=== PATIENT | female | born 1995 | race Two or more races ===

== ENCOUNTER 2023-03-22 16:45 | Inpatient (IN) | payer OTHER ==
[2023-03-22] MEDS ORDERED: Terbutaline 1 MG/ML SDV SUBCUT PRN (16:57)
[2023-03-22] MEDS ORDERED: Oxytocin/0.9 % Sodium Chloride 30 UNIT/500 ML BAG IV SCH ×2 (17:00→18:30)
[2023-03-22] MEDS: Lactated Ringers 1,000 ML IV SCH ×2 (17:30→21:49)
[2023-03-22] MEDS ORDERED: Methylergonovine 0.2 MG/1 ML Amp IM PRN (18:20)
[2023-03-22] MEDS ORDERED: Sodium Chloride 0.9% 20 ML SDV IV PRN (18:20)
[2023-03-22] MEDS ORDERED: Water For Irrigation,Sterile 1,000 ML Container IRR PRN (18:20)
[2023-03-22] MEDS ORDERED: Tranexamic Acid IN NACL,ISO-OS 1,000 MG in Premix Bag 1 BAG IV PRN ×2 (18:20)
[2023-03-22] MEDS ORDERED: Sodium Chloride 0.9% 10 ML Syringe FLUSH PRN (18:20)
[2023-03-22] MEDS ORDERED: Carboprost Tromethamine 250 MCG/1 mL Vial IM PRN (18:20)
[2023-03-22] MEDS ORDERED: Lidocaine 1% 50 ML MDV INJECT PRN (18:20)
[2023-03-22] MEDS ORDERED: Ondansetron 4 MG/2 ML SDV IVPUSH PRN (18:20)
[2023-03-22] MEDS ORDERED: Sodium Chloride 0.9% 2.5 ML Syringe FLUSH PRN (18:20)
[2023-03-22] MEDS ORDERED: Misoprostol 200 MCG Tab PO PRN (18:20)
[2023-03-22] MEDS ORDERED: Nalbuphine 10 MG/0.5 ML Syringe IVPUSH PRN (18:24)
[2023-03-22 18:41] LABS: HEMATOCRIT 36.3 % (36.0-46.0); HEMOGLOBIN 11.7 g/dL (12.0-16.0); MEAN CORPUSCULAR HEMOGLOBIN 26.4 pg (27.0-32.0); MEAN CORPUSCULAR HGB CONC 32.2 g/dL (31.0-37.0); MEAN CORPUSCULAR VOLUME 81.8 fL (80.0-98.0); MEAN PLATELET VOLUME 11.4 fL (7.40-12.00); RED BLOOD CELL COUNT 4.44 M/uL (4.30-5.90); WHITE BLOOD CELL COUNT,WBC 6.55 K/uL (4.0-11.0)
[2023-03-22] MEDS ORDERED: ePHEDrine 50 MG/ML SDV IVPUSH PRN ×2 (21:21)
[2023-03-22] MEDS ORDERED: Ropivacaine HCl/PF 400 MG in Premix Bag 1 BAG EPIDUR SCH (21:30)
[2023-03-22] MEDS ORDERED: Dexmedetomidine 200 MCG/2 ML SDV ONE (22:26)
[2023-03-23] MEDS: Lactated Ringers 1,000 ML IV SCH ×4 (00:57→16:37)
[2023-03-23] MEDS: Phenylephrine HCl 0.5 MG/5 ML AMP IVPUSH PRN ×7 (01:34→02:50)
[2023-03-24] MEDS ORDERED: Bisacodyl 10 MG Supp RECTAL PRN (00:05)
[2023-03-24] MEDS ORDERED: oxyCODONE 5 MG Tab PO PRN (00:05)
[2023-03-24] MEDS ORDERED: Ibuprofen 400 MG Tab PO PRN (00:05)
[2023-03-24] MEDS ORDERED: Lanolin 100% Cream 7 GM Tube TOP PRN (00:05)
[2023-03-24] MEDS ORDERED: Acetaminophen 500 MG Tab PO PRN (00:05)
[2023-03-24 00:14] LABS: PH,UMBILICAL ARTERIAL 7.169 (7.18-7.38); PH,UMBILICAL VENOUS 7.296 (7.25-7.45)
[2023-03-24] MEDS: Ibuprofen 800 MG Tab PO PRN ×3 (00:51→17:00)
[2023-03-24] MEDS: Acetaminophen 500 MG Tab PO PRN ×3 (00:53→21:26)
[2023-03-24] MEDS: Witch Hazel Medicated Pads 40/Jar TOP PRN ×2 (00:54→09:49)
[2023-03-24] MEDS: Benzocaine/Menthol 20%-0.5% Spray 78 GM Cannister TOP PRN (00:54)
[2023-03-24] MEDS: Docusate Sodium 100 MG Cap PO SCH ×2 (09:51→21:25)
[2023-03-24 15:17] LABS: HEMATOCRIT 26.8 % (36.0-46.0); HEMOGLOBIN 8.9 g/dL (12.0-16.0)
[2023-03-25] MEDS: Benzocaine/Menthol 20%-0.5% Spray 78 GM Cannister TOP PRN (04:13)
[2023-03-25] MEDS: Ibuprofen 800 MG Tab PO PRN (04:13)
[2023-03-25] MEDS: Witch Hazel Medicated Pads 40/Jar TOP PRN (04:13)
== END 2023-03-25 20:30 | disposition home or self-care (01) | DRG 768 ==
LOC: MW.OB 16:45 → OBSVTOIN 03-23 23:10 → MW.OB 03-24 04:12
PROVIDERS: ADMIT Obstetrics & Gynecology; ATTEND Obstetrics & Gynecology
PROC: 10E0XZZ Delivery of Products of Conception, External Approach (ICD-10-PCS; principal; 2023-03-23)
PROC: 0DQR0ZZ Repair Anal Sphincter, Open Approach (ICD-10-PCS; 2023-03-23)
PROC: 3E033VJ Introduction of Other Hormone into Peripheral Vein, Percutaneous Approach (ICD-10-PCS; 2023-03-23)
PROC: 3E0R3BZ Introduction of Anesthetic Agent into Spinal Canal, Percutaneous Approach (ICD-10-PCS; 2023-03-23)
PROC: 00HU33Z Insertion of Infusion Device into Spinal Canal, Percutaneous Approach (ICD-10-PCS; 2023-03-23)
PROC: 0W8NXZZ Division of Female Perineum, External Approach (ICD-10-PCS; 2023-03-23)
DX: O41.03X0 Oligohydramnios, third trimester, not applicable or unspecified (principal); Z37.0 Single live birth; O70.20 Third degree perineal laceration during delivery, unspecified; O48.0 Post-term pregnancy; O99.02 Anemia complicating childbirth; O24.439 Gestational diabetes mellitus in the puerperium, unspecified control; O69.81X0 Labor and delivery complicated by cord around neck, without compression, not applicable or unspecified; O66.0 Obstructed labor due to shoulder dystocia; Z3A.40 40 weeks gestation of pregnancy; Z79.899 Other long term (current) drug therapy; Z79.82 Long term (current) use of aspirin
CPT/HCPCS: 01967; 36415; 51702; 59025; 59409; 82803; 85014; 85018; 85027; 86592; 86850; 86900; 86901; A9270-GY; J2371; J2590; J2795; J3490; J7120